=== PATIENT | female | born 1965 | race Caucasian/White ===

== ENCOUNTER 2022-04-21 16:22 | Inpatient (IN) | payer OTHER ==
[~2022-04-21] VITALS: Ht 160 cm; Wt 65.9 kg
[2022-04-21] MEDS ORDERED: fentaNYL 100 MCG/2 ML INJECTION IV ONE ×3 (16:45→19:05)
[2022-04-21] MEDS: fentaNYL 100 MCG/2 ML INJECTION IV PRN ×2 (17:44→18:31)
[2022-04-21 19:44] LABS: RSV AMPLIFICATION NEGATIVE (NEGATIVE)
[2022-04-21 19:48] LABS: BASO % 0.3 % (0.0-1.0); EOS % 0.4 % (0.0-3.0); HEMATOCRIT 35.5 % (36.0-47.0); HEMOGLOBIN 11.1 g/dl (12.0-15.5); LYMPH # 0.7 10^3/uL (1.5-5.0); LYMPH % 7.3 % (24.0-44.0); MEAN CORPUSCULAR HEMOGLOBIN 27.3 pg (27.0-33.0); MEAN CORPUSCULAR HGB CONC 31.3 g/dl (32.0-36.5); MEAN CORPUSCULAR VOLUME 87.2 fl (80.0-96.0); MONO # 0.4 10^3/uL (0.0-0.8); MONO % 4.4 % (2.0-8.0); NEUTROPHILS # 8.4 10^3/uL (1.5-8.5); NEUTROPHILS % 87.1 % (36.0-66.0); PLATELET COUNT, AUTOMATED 225 10^3/uL (150-450); RED BLOOD COUNT 4.07 10^6/uL (4.00-5.40); WHITE BLOOD COUNT 9.7 10^3/uL (4.0-10.0)
[2022-04-21 20:08] LABS: INR 0.97; PARTIAL THROMBOPLASTIN TIME 28.2 SECONDS (25.9-37.0); PROTHROMBIN TIME 13.3 SECONDS (12.7-14.5)
[2022-04-21] MEDS ORDERED: AMLO10TA PO (20:28)
[2022-04-21] MEDS ORDERED: LEXA1TAB PO ×2 (20:28→22:39)
[2022-04-21] MEDS ORDERED: BENA20TA PO (20:28)
[2022-04-21] MEDS ORDERED: ROSU10TA6 PO ×2 (20:28→22:39)
[2022-04-21 20:29] LABS: ALBUMIN 3.7 GM/DL (3.2-5.2); ALT/SGPT 30 U/L (12-78); BILIRUBIN,TOTAL 0.3 MG/DL (0.2-1.0); BLOOD UREA NITROGEN 19 MG/DL (7-18); CALCIUM LEVEL 9.2 MG/DL (8.5-10.1); CARBON DIOXIDE LEVEL 25 MEQ/L (21-32); CHLORIDE LEVEL 104 MEQ/L (98-107); CREATININE FOR GFR 0.76 MG/DL (0.55-1.30); GLOMERULAR FILTRATION RATE > 60.0 (>51); GLUCOSE, FASTING 128 MG/DL (70-100); POTASSIUM SERUM 4.2 MEQ/L (3.5-5.1); SODIUM LEVEL 136 MEQ/L (136-145); TOTAL PROTEIN 7.4 GM/DL (6.4-8.2)
[2022-04-21] MEDS ORDERED: ACETAMINOPHEN TAB 650MG DOSE (2X325MG) PO PRN (21:05)
[2022-04-21] MEDS ORDERED: ANEXSIA, NORCO 7.5MG/325MG TABLET(HYDROCODONE/APAP) PO PRN (21:05)
[2022-04-21] MEDS: ANEXSIA, NORCO 7.5MG/325MG TABLET(HYDROCODONE/APAP) PO PRN ×2 (21:46→22:30)
[2022-04-21] MEDS: MORPHINE 4 MG/ML 1ML VIAL/SYRINGE IV PRN (21:48)
[2022-04-21] MEDS ORDERED: OXYB5TAB10 PO (22:39)
[2022-04-21] MEDS ORDERED: RA G1TAB11 PO (22:39)
[2022-04-21] MEDS ORDERED: LOMO2.5T PO (22:39)
[2022-04-21] MEDS ORDERED: VITA500T73 PO (22:39)
[2022-04-21] MEDS ORDERED: VITMTA PO (22:39)
[2022-04-21] MEDS ORDERED: AMLO1TAB24 PO (22:39)
[2022-04-21] MEDS ORDERED: BENA40TA84 PO (22:39)
[2022-04-21] MEDS ORDERED: VITA100093 PO (22:39)
[2022-04-21] MEDS ORDERED: HOME MED LIST COMPLETE! XX SCH (22:40)
[2022-04-21] MEDS ORDERED: LOMOTIL 2.5MG/0.025MG TABLET PO PRN (22:50)
[2022-04-22] MEDS: amLODIPine 5 MG TAB PO SCH ×2 (00:01→21:47)
[2022-04-22] MEDS ORDERED: KETOROLAC 30 MG/ML 1ML VIAL IV ONE (00:15)
[2022-04-22] MEDS ORDERED: METHOCARBAMOL 1,000 MG/10 ML VIAL (J2800) IV ONE (00:40)
[2022-04-22] MEDS ORDERED: METHOCARBAMOL 1,000 MG/10 ML VIAL (J2800) IM ONE (01:05)
[2022-04-22] MEDS: BENAZEPRIL 20 MG TAB PO SCH ×2 (01:32→21:47)
[2022-04-22] MEDS: ESCITALOPRAM OXALATE 10 MG TAB (LEXAPRO) PO SCH ×2 (01:32→21:45)
[2022-04-22 01:55] VITALS: BP 160/74
[2022-04-22] MEDS: ROSUVASTATIN 10 MG TAB (CRESTOR) PO SCH ×2 (02:07→21:47)
[2022-04-22] MEDS: oxyBUTYnin 5 MG TAB PO SCH ×2 (02:07→21:45)
[2022-04-22] MEDS: ANEXSIA, NORCO 7.5MG/325MG TABLET(HYDROCODONE/APAP) PO PRN ×4 (02:47→21:15)
[2022-04-22 06:48] LABS: HEMATOCRIT 30.1 % (36.0-47.0); HEMOGLOBIN 9.8 g/dl (12.0-15.5); MEAN CORPUSCULAR HEMOGLOBIN 27.5 pg (27.0-33.0); MEAN CORPUSCULAR HGB CONC 32.6 g/dl (32.0-36.5); MEAN CORPUSCULAR VOLUME 84.6 fl (80.0-96.0); PLATELET COUNT, AUTOMATED 207 10^3/uL (150-450); RED BLOOD COUNT 3.56 10^6/uL (4.00-5.40); WHITE BLOOD COUNT 5.8 10^3/uL (4.0-10.0)
[2022-04-22 07:00] VITALS: BP 110/57
[2022-04-22 07:19] LABS: BLOOD UREA NITROGEN 15 MG/DL (7-18); CALCIUM LEVEL 8.7 MG/DL (8.5-10.1); CARBON DIOXIDE LEVEL 27 MEQ/L (21-32); CHLORIDE LEVEL 103 MEQ/L (98-107); CREATININE FOR GFR 0.65 MG/DL (0.55-1.30); GLOMERULAR FILTRATION RATE > 60.0 (>51); GLUCOSE, FASTING 120 MG/DL (70-100); POTASSIUM SERUM 4.3 MEQ/L (3.5-5.1); SODIUM LEVEL 135 MEQ/L (136-145)
[2022-04-22] MEDS: DOCUSATE SODIUM 100MG CAPSULE PO SCH ×2 (08:16→21:00)
[2022-04-22] MEDS ORDERED: ACETAMINOPHEN TAB 650MG DOSE (2X325MG) PO SCH ×2 (13:00→18:00)
[2022-04-22] MEDS: LIDOCAINE 5% (LIDODERM) PATCH TD SCH (13:16)
[2022-04-22 14:00] VITALS: BP 132/73
[2022-04-22] MEDS: ONDANSETRON 4MG ORAL DISINTEGRATING TAB PO PRN ×2 (14:32→21:14)
[2022-04-22] MEDS: MORPHINE 4 MG/ML 1ML VIAL/SYRINGE IV PRN (16:58)
[2022-04-22] MEDS ORDERED: PROCHLORPERAZINE 5MG TAB PO PRN (17:45)
[2022-04-22 19:58] VITALS: BP 133/77
[2022-04-22] MEDS: HEPARIN SOD (PORCINE) 5000UNITS/ML 1ML VIAL/SYRINGE SQ SCH (21:45)
[2022-04-22] MEDS: **NOTE PATIENT COMMENT** MISC XX SCH (21:52)
[2022-04-23] MEDS: ANEXSIA, NORCO 7.5MG/325MG TABLET(HYDROCODONE/APAP) PO PRN ×4 (03:30→21:12)
[2022-04-23] MEDS: HEPARIN SOD (PORCINE) 5000UNITS/ML 1ML VIAL/SYRINGE SQ SCH ×3 (05:37→22:09)
[2022-04-23] MEDS: ONDANSETRON 4MG ORAL DISINTEGRATING TAB PO PRN ×2 (06:23→18:05)
[2022-04-23] MEDS: MORPHINE 4 MG/ML 1ML VIAL/SYRINGE IV PRN ×2 (06:23→18:06)
[2022-04-23 06:54] VITALS: BP 119/69
[2022-04-23] MEDS: DOCUSATE SODIUM 100MG CAPSULE PO SCH ×2 (08:34→21:12)
[2022-04-23] MEDS: LIDOCAINE 5% (LIDODERM) PATCH TD SCH (08:36)
[2022-04-23 14:16] VITALS: BP 119/66
[2022-04-23] MEDS: BENAZEPRIL 20 MG TAB PO SCH (21:11)
[2022-04-23] MEDS: amLODIPine 5 MG TAB PO SCH (21:12)
[2022-04-23] MEDS: ESCITALOPRAM OXALATE 10 MG TAB (LEXAPRO) PO SCH (21:12)
[2022-04-23] MEDS: ROSUVASTATIN 10 MG TAB (CRESTOR) PO SCH (21:12)
[2022-04-23] MEDS: oxyBUTYnin 5 MG TAB PO SCH (21:12)
[2022-04-23] MEDS: **NOTE PATIENT COMMENT** MISC XX SCH (21:14)
[2022-04-23 22:00] VITALS: BP 133/66
[2022-04-24] MEDS: ANEXSIA, NORCO 7.5MG/325MG TABLET(HYDROCODONE/APAP) PO PRN ×5 (01:28→22:24)
[2022-04-24] MEDS: HEPARIN SOD (PORCINE) 5000UNITS/ML 1ML VIAL/SYRINGE SQ SCH ×3 (05:37→21:51)
[2022-04-24 06:00] VITALS: BP 130/67
[2022-04-24 07:40] LABS: HEMATOCRIT 30.9 % (36.0-47.0); HEMOGLOBIN 9.9 g/dl (12.0-15.5); MEAN CORPUSCULAR HEMOGLOBIN 27.5 pg (27.0-33.0); MEAN CORPUSCULAR VOLUME 85.8 fl (80.0-96.0); PLATELET COUNT, AUTOMATED 197 10^3/uL (150-450); WHITE BLOOD COUNT 4.1 10^3/uL (4.0-10.0)
[2022-04-24] MEDS: DOCUSATE SODIUM 100MG CAPSULE PO SCH ×2 (08:07→21:53)
[2022-04-24] MEDS: LIDOCAINE 5% (LIDODERM) PATCH TD SCH (08:09)
[2022-04-24] MEDS ORDERED: SENNA 8.6 MG TAB (SENOKOT) PO PRN (08:50)
[2022-04-24] MEDS: CYCLOBENZAPRINE 10MG TABLET PO SCH ×2 (11:48→21:53)
[2022-04-24] MEDS: MORPHINE 4 MG/ML 1ML VIAL/SYRINGE IV PRN (13:09)
[2022-04-24] MEDS: MIRALAX *UNIT DOSE* 17GM PACKET PO SCH ×2 (13:09→21:00)
[2022-04-24] MEDS: ONDANSETRON 4MG ORAL DISINTEGRATING TAB PO PRN (13:09)
[2022-04-24 14:00] VITALS: BP 127/74
[2022-04-24 20:00] VITALS: BP 143/74
[2022-04-24] MEDS: BENAZEPRIL 20 MG TAB PO SCH (21:52)
[2022-04-24] MEDS: amLODIPine 5 MG TAB PO SCH (21:53)
[2022-04-24] MEDS: ROSUVASTATIN 10 MG TAB (CRESTOR) PO SCH (21:53)
[2022-04-24] MEDS: IBUPROFEN 600MG TAB PO PRN (21:53)
[2022-04-24] MEDS: ESCITALOPRAM OXALATE 10 MG TAB (LEXAPRO) PO SCH (21:54)
[2022-04-24] MEDS: oxyBUTYnin 5 MG TAB PO SCH (21:54)
[2022-04-24] MEDS: **NOTE PATIENT COMMENT** MISC XX SCH (21:55)
[2022-04-25] MEDS: ANEXSIA, NORCO 7.5MG/325MG TABLET(HYDROCODONE/APAP) PO PRN ×2 (02:55→08:02)
[2022-04-25] MEDS: HEPARIN SOD (PORCINE) 5000UNITS/ML 1ML VIAL/SYRINGE SQ SCH ×3 (05:31→20:41)
[2022-04-25 06:00] VITALS: BP 102/51
[2022-04-25 06:17] LABS: HEMATOCRIT 32.8 % (36.0-47.0); HEMOGLOBIN 10.2 g/dl (12.0-15.5); MEAN CORPUSCULAR HEMOGLOBIN 26.8 pg (27.0-33.0); MEAN CORPUSCULAR HGB CONC 31.1 g/dl (32.0-36.5); MEAN CORPUSCULAR VOLUME 86.3 fl (80.0-96.0); PLATELET COUNT, AUTOMATED 206 10^3/uL (150-450); WHITE BLOOD COUNT 4.2 10^3/uL (4.0-10.0)
[2022-04-25] MEDS: DOCUSATE SODIUM 100MG CAPSULE PO SCH ×2 (08:00→20:38)
[2022-04-25] MEDS: SENNA 8.6 MG TAB (SENOKOT) PO SCH (08:00)
[2022-04-25] MEDS: MIRALAX *UNIT DOSE* 17GM PACKET PO SCH ×2 (08:00→20:38)
[2022-04-25] MEDS: CYCLOBENZAPRINE 10MG TABLET PO SCH ×3 (08:00→20:38)
[2022-04-25] MEDS: LIDOCAINE 5% (LIDODERM) PATCH TD SCH (08:02)
[2022-04-25 08:04] LABS: BLOOD UREA NITROGEN 14 MG/DL (7-18); CALCIUM LEVEL 9.3 MG/DL (8.5-10.1); CARBON DIOXIDE LEVEL 28 MEQ/L (21-32); CHLORIDE LEVEL 103 MEQ/L (98-107); CREATININE FOR GFR 0.78 MG/DL (0.55-1.30); GLOMERULAR FILTRATION RATE > 60.0 (>51); GLUCOSE, FASTING 107 MG/DL (70-100); POTASSIUM SERUM 4.4 MEQ/L (3.5-5.1); SODIUM LEVEL 135 MEQ/L (136-145)
[2022-04-25] MEDS ORDERED: SENNA 8.6 MG TAB (SENOKOT) PO SCH (08:50)
[2022-04-25] MEDS: BACLOFEN 5MG PER 1/2 TABLET PO SCH ×3 (09:00→20:38)
[2022-04-25] MEDS ORDERED: NALOXONE 2MG/2ML SYRINGE (J2310 PER 1MG) PRN (09:35)
[2022-04-25] MEDS: METAMUCIL (PSYLLIUM) PACKET PO SCH ×2 (10:19→20:38)
[2022-04-25] MEDS ORDERED: NALOXONE INJ 0.4MG/1ML VIAL (J2310 PER 1MG) IV PRN (10:20)
[2022-04-25] MEDS: MOM 30ML SUSPENSION UDC PO PRN (12:39)
[2022-04-25] MEDS: ACETAMINOPHEN 500 MG TAB PO SCH ×2 (12:39→17:03)
[2022-04-25] MEDS: METHYLNALTREXONE BROMIDE 12MG/0.6ML VIAL (RELISTOR) SC SCH (12:39)
[2022-04-25] MEDS: oxyCODONE 5MG TAB PO PRN ×2 (12:52→17:04)
[2022-04-25 14:00] VITALS: BP 117/67
[2022-04-25] MEDS: oxyBUTYnin 5 MG TAB PO SCH (20:39)
[2022-04-25] MEDS: amLODIPine 5 MG TAB PO SCH (20:39)
[2022-04-25] MEDS: ROSUVASTATIN 10 MG TAB (CRESTOR) PO SCH (20:39)
[2022-04-25] MEDS: ESCITALOPRAM OXALATE 10 MG TAB (LEXAPRO) PO SCH (20:39)
[2022-04-25] MEDS: BENAZEPRIL 20 MG TAB PO SCH (20:39)
[2022-04-25] MEDS: IBUPROFEN 600MG TAB PO PRN (20:40)
[2022-04-25] MEDS: oxyCODONE 10 MG CR TAB PO SCH (20:40)
[2022-04-25] MEDS: **NOTE PATIENT COMMENT** MISC XX SCH (20:40)
[2022-04-25 21:00] VITALS: O2SAT 95
[2022-04-25 22:00] VITALS: BP 120/66
[2022-04-26] VITALS (8 sets, daily range): BP systolic 116–132; BP diastolic 67–75; O2SAT 94
[2022-04-26] MEDS: HEPARIN SOD (PORCINE) 5000UNITS/ML 1ML VIAL/SYRINGE SQ SCH (00:18)
[2022-04-26] MEDS: ACETAMINOPHEN 500 MG TAB PO SCH ×5 (00:22→23:52)
[2022-04-26] MEDS: oxyCODONE 5MG TAB PO PRN ×4 (00:28→23:51)
[2022-04-26] MEDS ORDERED: propofoL 200 MG/20 ML VIAL As Ordered ONE (07:47)
[2022-04-26] MEDS ORDERED: LIDOCAINE 2% 100MG/5ML SDV (FOR ANES.) As Ordered ONE (07:47)
[2022-04-26] MEDS ORDERED: MIDAZOLAM INJ 2MG/2ML VIAL (J2250 PER 1MG) As Ordered ONE (07:47)
[2022-04-26] MEDS ORDERED: fentaNYL 100 MCG/2 ML INJECTION As Ordered ONE ×2 (07:47→09:04)
[2022-04-26] MEDS ORDERED: ROCURONIUM BROMIDE 50 MG/5 ML VIAL As Ordered ONE ×2 (07:47→09:37)
[2022-04-26] MEDS ORDERED: ONDANSETRON 4MG 2ML VIAL As Ordered ONE (07:48)
[2022-04-26] MEDS ORDERED: dexameTHASONE 4 MG/ML 1ML VIAL (J1100 PER 1MG) As Ordered ONE (07:48)
[2022-04-26] MEDS ORDERED: ACETAMINOPHEN 1000MG 100ML IV BTL (OFIRMEV) (J0131 PER 10MG) As Ordered ONE (07:48)
[2022-04-26] MEDS ORDERED: SUGAMMADEX SODIUM 500 MG/5 ML VIAL (BRIDION) As Ordered ONE (07:48)
[2022-04-26] MEDS ORDERED: ceFAZolin 2 GM/D5W 50 ML IV BAG (J0690 PER 500MG) As Ordered ONE ×2 (07:52→12:32)
[2022-04-26] MEDS ORDERED: TRANEXAMIC ACID 100 MG/ML 10ML VIAL As Ordered ONE ×3 (07:52→12:40)
[2022-04-26] MEDS ORDERED: BUPIVACAINE HCL 0.25% 10ML VIAL As Ordered ONE (07:53)
[2022-04-26] MEDS ORDERED: BUPIVACAINE LIPOSOME/PF 1.3% 20ML VIAL (13.3MG/ML)(EXPAREL) As Ordered ONE (07:53)
[2022-04-26] MEDS ORDERED: VANCOMYCIN 1000MG/20ML VIAL As Ordered ONE ×2 (07:53→08:54)
[2022-04-26] MEDS: DOCUSATE SODIUM 100MG CAPSULE PO SCH ×2 (08:00→20:06)
[2022-04-26] MEDS: METHYLNALTREXONE BROMIDE 12MG/0.6ML VIAL (RELISTOR) SC SCH (08:01)
[2022-04-26] MEDS: METAMUCIL (PSYLLIUM) PACKET PO SCH ×2 (08:01→20:07)
[2022-04-26] MEDS: oxyCODONE 10 MG CR TAB PO SCH (08:01)
[2022-04-26] MEDS: LIDOCAINE 5% (LIDODERM) PATCH TD SCH (08:01)
[2022-04-26] MEDS: SENNA 8.6 MG TAB (SENOKOT) PO SCH (08:01)
[2022-04-26] MEDS: MIRALAX *UNIT DOSE* 17GM PACKET PO SCH ×2 (08:01→20:07)
[2022-04-26] MEDS: BACLOFEN 5MG PER 1/2 TABLET PO SCH ×3 (08:01→20:06)
[2022-04-26] MEDS: CYCLOBENZAPRINE 10MG TABLET PO SCH ×3 (08:01→20:06)
[2022-04-26] MEDS ORDERED: PHENYLephrine 500MCG 5ML (100MCG/ML) SYRINGE As Ordered ONE ×2 (10:36→10:45)
[2022-04-26] MEDS ORDERED: PHENYLEPHRINE 10MG/ML 1ML VIAL (J2370 PER 1) As Ordered ONE (11:10)
[2022-04-26] MEDS ORDERED: HYDROmorphone HCL 2MG/ML 1ML VIAL As Ordered ONE (12:40)
[2022-04-26] MEDS ORDERED: ONDANSETRON 4MG 2ML VIAL IV PRN (13:10)
[2022-04-26] MEDS ORDERED: oxyCODONE 5MG TAB PO PRN (13:10)
[2022-04-26] MEDS ORDERED: fentaNYL 100 MCG/2 ML INJECTION IV PRN (13:10)
[2022-04-26] MEDS ORDERED: LR 1,000 ML IV SCH (13:10)
[2022-04-26] MEDS: MORPHINE 2 MG/ML 1ML VIAL IV PRN ×2 (14:09→14:31)
[2022-04-26] MEDS ORDERED: ERYTHROMYCIN OPHTH OINT OU SCH (16:00)
[2022-04-26] MEDS ORDERED: MORPHINE 4 MG/ML 1ML VIAL/SYRINGE IV PRN (16:25)
[2022-04-26] MEDS: LACRILUBE (AKWA TEARS) OPHTH OINT 3.5 GM OU SCH ×2 (17:03→20:08)
[2022-04-26] MEDS: ERYTHROMYCIN OPHTH OINT OU SCH ×2 (17:04→20:08)
[2022-04-26] MEDS ORDERED: hydrOXYzine 50 MG TAB PO ONE (19:30)
[2022-04-26] MEDS: oxyBUTYnin 5 MG TAB PO SCH (20:06)
[2022-04-26] MEDS: amLODIPine 5 MG TAB PO SCH (20:06)
[2022-04-26] MEDS: ROSUVASTATIN 10 MG TAB (CRESTOR) PO SCH (20:06)
[2022-04-26] MEDS: **NOTE PATIENT COMMENT** MISC XX SCH (20:07)
[2022-04-27 02:58] VITALS: BP 136/74
[2022-04-27] MEDS: oxyCODONE 5MG TAB PO PRN ×3 (03:57→22:35)
[2022-04-27] MEDS: ACETAMINOPHEN 500 MG TAB PO SCH ×4 (06:03→23:28)
[2022-04-27 06:37] LABS: HEMATOCRIT 25.7 % (36.0-47.0); HEMOGLOBIN 8.1 g/dl (12.0-15.5)
[2022-04-27 07:09] LABS: BLOOD UREA NITROGEN 16 MG/DL (7-18); CALCIUM LEVEL 8.8 MG/DL (8.5-10.1); CARBON DIOXIDE LEVEL 27 MEQ/L (21-32); CHLORIDE LEVEL 103 MEQ/L (98-107); CREATININE FOR GFR 0.74 MG/DL (0.55-1.30); GLOMERULAR FILTRATION RATE > 60.0 (>51); GLUCOSE, FASTING 131 MG/DL (70-100); POTASSIUM SERUM 4.3 MEQ/L (3.5-5.1); SODIUM LEVEL 136 MEQ/L (136-145)
[2022-04-27] MEDS ORDERED: NEOSPORIN TOP OINT 15GM TOP SCH (09:00)
[2022-04-27] MEDS: METAMUCIL (PSYLLIUM) PACKET PO SCH ×2 (09:40→22:04)
[2022-04-27] MEDS: SENNA 8.6 MG TAB (SENOKOT) PO SCH (09:40)
[2022-04-27] MEDS: BACLOFEN 5MG PER 1/2 TABLET PO SCH ×3 (09:40→22:03)
[2022-04-27] MEDS: MIRALAX *UNIT DOSE* 17GM PACKET PO SCH ×2 (09:40→22:04)
[2022-04-27] MEDS: CYCLOBENZAPRINE 10MG TABLET PO SCH ×3 (09:40→22:03)
[2022-04-27] MEDS: DOCUSATE SODIUM 100MG CAPSULE PO SCH ×2 (09:40→22:02)
[2022-04-27] MEDS: LIDOCAINE 5% (LIDODERM) PATCH TD SCH (09:40)
[2022-04-27] MEDS: ERYTHROMYCIN OPHTH OINT OU SCH ×5 (09:41→22:04)
[2022-04-27] MEDS: LACRILUBE (AKWA TEARS) OPHTH OINT 3.5 GM OU SCH ×4 (09:41→22:04)
[2022-04-27] MEDS: METHYLNALTREXONE BROMIDE 12MG/0.6ML VIAL (RELISTOR) SC SCH (11:32)
[2022-04-27] MEDS ORDERED: BISACODYL 10 MG SUPP PR ONE (12:40)
[2022-04-27] MEDS: HEPARIN SOD (PORCINE) 5000UNITS/ML 1ML VIAL/SYRINGE SQ SCH ×2 (13:13→22:05)
[2022-04-27 13:20] LABS: HEMATOCRIT 24.9 % (36.0-47.0); HEMOGLOBIN 7.9 g/dl (12.0-15.5)
[2022-04-27 14:00] VITALS: BP 123/70
[2022-04-27 14:02] LABS: FERRITIN 42 NG/ML (8-252); IRON (FE) 27 UG/DL (50-170); PERCENT SATURATION 9.2 % (13.2-45.0); TOTAL IRON BINDING CAPACITY 292 UG/DL (250-450)
[2022-04-27 14:34] LABS: VITAMIN B12 LEVEL > 2000 PG/ML (247-911)
[2022-04-27 14:35] LABS: FOLATE 10.8 NG/ML (>5.4)
[2022-04-27] MEDS ORDERED: ISOVUE-370 76% 100ML VIAL As Ordered ONE (17:26)
[2022-04-27] MEDS ORDERED: IRON SUCROSE 300 MG in NS 250 ML IV ONE (19:00)
[2022-04-27 19:28] VITALS: BP 135/82
[2022-04-27] MEDS: **NOTE PATIENT COMMENT** MISC XX SCH (21:00)
[2022-04-27 22:00] VITALS: BP 132/76
[2022-04-27] MEDS: oxyBUTYnin 5 MG TAB PO SCH (22:04)
[2022-04-27] MEDS: ROSUVASTATIN 10 MG TAB (CRESTOR) PO SCH (22:05)
[2022-04-27] MEDS: ESCITALOPRAM OXALATE 10 MG TAB (LEXAPRO) PO SCH (22:05)
[2022-04-27] MEDS ORDERED: BISACODYL 5 MG TAB PO ONE (22:05)
[2022-04-27] MEDS: amLODIPine 5 MG TAB PO SCH (22:06)
[2022-04-27] MEDS: BENAZEPRIL 20 MG TAB PO SCH (22:35)
[2022-04-28] VITALS (8 sets, daily range): BP systolic 120–142; BP diastolic 67–79
[2022-04-28] MEDS: HEPARIN SOD (PORCINE) 5000UNITS/ML 1ML VIAL/SYRINGE SQ SCH ×3 (05:43→20:37)
[2022-04-28] MEDS: ACETAMINOPHEN 500 MG TAB PO SCH ×3 (05:43→16:53)
[2022-04-28] MEDS: oxyCODONE 5MG TAB PO PRN (05:56)
[2022-04-28 06:18] LABS: HEMATOCRIT 24.6 % (36.0-47.0); HEMOGLOBIN 7.7 g/dl (12.0-15.5); MEAN CORPUSCULAR HEMOGLOBIN 27.1 pg (27.0-33.0); MEAN CORPUSCULAR HGB CONC 31.3 g/dl (32.0-36.5); MEAN CORPUSCULAR VOLUME 86.6 fl (80.0-96.0); PLATELET COUNT, AUTOMATED 233 10^3/uL (150-450); RED BLOOD COUNT 2.84 10^6/uL (4.00-5.40); WHITE BLOOD COUNT 7.4 10^3/uL (4.0-10.0)
[2022-04-28 06:35] LABS: BLOOD UREA NITROGEN 12 MG/DL (7-18); CALCIUM LEVEL 9.1 MG/DL (8.5-10.1); CARBON DIOXIDE LEVEL 30 MEQ/L (21-32); CHLORIDE LEVEL 101 MEQ/L (98-107); CREATININE FOR GFR 0.57 MG/DL (0.55-1.30); GLOMERULAR FILTRATION RATE > 60.0 (>51); GLUCOSE, FASTING 117 MG/DL (70-100); MAGNESIUM LEVEL 2.2 MG/DL (1.8-2.4); POTASSIUM SERUM 4.4 MEQ/L (3.5-5.1); SODIUM LEVEL 133 MEQ/L (136-145)
[2022-04-28] MEDS ORDERED: MOM 30ML SUSPENSION UDC PO ONE (07:00)
[2022-04-28] MEDS: LACTULOSE 20 GM/30 ML SYRUP UD PO SCH ×2 (08:02→20:37)
[2022-04-28] MEDS: MIRALAX *UNIT DOSE* 17GM PACKET PO SCH ×2 (08:03→20:37)
[2022-04-28] MEDS: METAMUCIL (PSYLLIUM) PACKET PO SCH ×2 (08:03→20:37)
[2022-04-28] MEDS: DOCUSATE SODIUM 100MG CAPSULE PO SCH ×2 (08:03→20:39)
[2022-04-28] MEDS: BACLOFEN 5MG PER 1/2 TABLET PO SCH ×3 (08:04→20:38)
[2022-04-28] MEDS: SENNA 8.6 MG TAB (SENOKOT) PO SCH (08:04)
[2022-04-28] MEDS: CYCLOBENZAPRINE 10MG TABLET PO SCH ×3 (08:04→20:38)
[2022-04-28] MEDS: FERROUS SULFATE 325MG TAB PO SCH (08:04)
[2022-04-28] MEDS: METHYLNALTREXONE BROMIDE 12MG/0.6ML VIAL (RELISTOR) SC SCH (08:04)
[2022-04-28] MEDS: LIDOCAINE 5% (LIDODERM) PATCH TD SCH (08:12)
[2022-04-28] MEDS: LACRILUBE (AKWA TEARS) OPHTH OINT 3.5 GM OU SCH ×3 (08:12→20:39)
[2022-04-28] MEDS: ERYTHROMYCIN OPHTH OINT OU SCH ×4 (08:12→20:39)
[2022-04-28] MEDS ORDERED: LIDOCAINE 1% MDV 20ML VIAL As Ordered ONE (10:47)
[2022-04-28] MEDS ORDERED: ISOVUE-370 76% 100ML VIAL As Ordered ONE (11:26)
[2022-04-28] MEDS: CALCIUM CARBONATE 500 MG CHEW U/D PO PRN (20:37)
[2022-04-28] MEDS: ROSUVASTATIN 10 MG TAB (CRESTOR) PO SCH (20:38)
[2022-04-28] MEDS: oxyBUTYnin 5 MG TAB PO SCH (20:38)
[2022-04-28] MEDS: ESCITALOPRAM OXALATE 10 MG TAB (LEXAPRO) PO SCH (20:38)
[2022-04-28] MEDS: BENAZEPRIL 20 MG TAB PO SCH (20:38)
[2022-04-28] MEDS: **NOTE PATIENT COMMENT** MISC XX SCH (20:39)
[2022-04-28] MEDS: amLODIPine 5 MG TAB PO SCH (20:39)
[2022-04-29] MEDS: ONDANSETRON 4MG ORAL DISINTEGRATING TAB PO PRN ×2 (00:05→08:38)
[2022-04-29 05:47] VITALS: BP 169/91
[2022-04-29] MEDS: ACETAMINOPHEN 500 MG TAB PO SCH ×4 (05:50→18:02)
[2022-04-29] MEDS: HEPARIN SOD (PORCINE) 5000UNITS/ML 1ML VIAL/SYRINGE SQ SCH ×3 (05:50→21:53)
[2022-04-29 06:20] LABS: HEMATOCRIT 28.3 % (36.0-47.0); MEAN CORPUSCULAR HEMOGLOBIN 27.4 pg (27.0-33.0); MEAN CORPUSCULAR HGB CONC 31.8 g/dl (32.0-36.5); PLATELET COUNT, AUTOMATED 239 10^3/uL (150-450); RED BLOOD COUNT 3.29 10^6/uL (4.00-5.40); WHITE BLOOD COUNT 7.9 10^3/uL (4.0-10.0)
[2022-04-29 07:22] LABS: BLOOD UREA NITROGEN 13 MG/DL (7-18); CARBON DIOXIDE LEVEL 27 MEQ/L (21-32); CHLORIDE LEVEL 101 MEQ/L (98-107); CREATININE FOR GFR 0.45 MG/DL (0.55-1.30); GLOMERULAR FILTRATION RATE > 60.0 (>51); GLUCOSE, FASTING 130 MG/DL (70-100); MAGNESIUM LEVEL 2.2 MG/DL (1.8-2.4); PHOSPHORUS LEVEL 3.5 MG/DL (2.5-4.9); SODIUM LEVEL 133 MEQ/L (136-145)
[2022-04-29] MEDS: LIDOCAINE 5% (LIDODERM) PATCH TD SCH (09:00)
[2022-04-29] MEDS: LACRILUBE (AKWA TEARS) OPHTH OINT 3.5 GM OU SCH ×3 (09:00→21:00)
[2022-04-29] MEDS ORDERED: MIRALAX *UNIT DOSE* 17GM PACKET PO SCH (09:00)
[2022-04-29] MEDS: ERYTHROMYCIN OPHTH OINT OU SCH ×4 (09:00→21:00)
[2022-04-29] MEDS: METHYLNALTREXONE BROMIDE 12MG/0.6ML VIAL (RELISTOR) SC SCH (09:43)
[2022-04-29] MEDS: METAMUCIL (PSYLLIUM) PACKET PO SCH ×2 (09:43→21:52)
[2022-04-29] MEDS: DOCUSATE SODIUM 100MG CAPSULE PO SCH ×2 (09:43→21:54)
[2022-04-29] MEDS: MIRALAX *UNIT DOSE* 17GM PACKET PO SCH ×2 (09:43→21:52)
[2022-04-29] MEDS: FERROUS SULFATE 325MG TAB PO SCH (09:44)
[2022-04-29] MEDS: BACLOFEN 5MG PER 1/2 TABLET PO SCH ×3 (09:44→21:53)
[2022-04-29] MEDS: LACTULOSE 20 GM/30 ML SYRUP UD PO SCH ×2 (09:44→21:52)
[2022-04-29] MEDS: SENNA 8.6 MG TAB (SENOKOT) PO SCH (09:44)
[2022-04-29] MEDS: CYCLOBENZAPRINE 10MG TABLET PO SCH ×3 (09:44→21:54)
[2022-04-29] MEDS: CALCIUM CARBONATE 500 MG CHEW U/D PO PRN (13:10)
[2022-04-29 14:49] VITALS: BP 168/92
[2022-04-29] MEDS ORDERED: LACTULOSE 20 GM/30 ML SYRUP UD PO SCH (16:00)
[2022-04-29] MEDS: **NOTE PATIENT COMMENT** MISC XX SCH (21:00)
[2022-04-29] MEDS: oxyBUTYnin 5 MG TAB PO SCH (21:54)
[2022-04-29] MEDS: BENAZEPRIL 20 MG TAB PO SCH (21:54)
[2022-04-29] MEDS: ESCITALOPRAM OXALATE 10 MG TAB (LEXAPRO) PO SCH (21:54)
[2022-04-29] MEDS: ROSUVASTATIN 10 MG TAB (CRESTOR) PO SCH (21:54)
[2022-04-29] MEDS: amLODIPine 5 MG TAB PO SCH (21:55)
[2022-04-29 22:05] VITALS: BP 166/80
[2022-04-30] MEDS: ONDANSETRON 4MG ORAL DISINTEGRATING TAB PO PRN (02:35)
[2022-04-30] MEDS: CALCIUM CARBONATE 500 MG CHEW U/D PO PRN (02:35)
[2022-04-30 05:57] VITALS: BP 174/94
[2022-04-30] MEDS: HEPARIN SOD (PORCINE) 5000UNITS/ML 1ML VIAL/SYRINGE SQ SCH ×3 (06:00→21:57)
[2022-04-30] MEDS: ACETAMINOPHEN 500 MG TAB PO SCH ×4 (06:01→16:13)
[2022-04-30 07:16] LABS: HEMATOCRIT 29.3 % (36.0-47.0); HEMOGLOBIN 9.5 g/dl (12.0-15.5); MEAN CORPUSCULAR HEMOGLOBIN 27.9 pg (27.0-33.0); MEAN CORPUSCULAR HGB CONC 32.4 g/dl (32.0-36.5); MEAN CORPUSCULAR VOLUME 86.2 fl (80.0-96.0); PLATELET COUNT, AUTOMATED 249 10^3/uL (150-450); WHITE BLOOD COUNT 7.8 10^3/uL (4.0-10.0)
[2022-04-30 08:01] LABS: BLOOD UREA NITROGEN 17 MG/DL (7-18); CALCIUM LEVEL 8.8 MG/DL (8.5-10.1); CARBON DIOXIDE LEVEL 26 MEQ/L (21-32); CHLORIDE LEVEL 101 MEQ/L (98-107); CREATININE FOR GFR 0.48 MG/DL (0.55-1.30); GLOMERULAR FILTRATION RATE > 60.0 (>51); GLUCOSE, FASTING 147 MG/DL (70-100); POTASSIUM SERUM 3.6 MEQ/L (3.5-5.1); SODIUM LEVEL 135 MEQ/L (136-145)
[2022-04-30] MEDS: LACTULOSE 20 GM/30 ML SYRUP UD PO SCH ×3 (08:58→21:58)
[2022-04-30] MEDS: MIRALAX *UNIT DOSE* 17GM PACKET PO SCH ×2 (08:58→21:57)
[2022-04-30] MEDS: MOM 30ML SUSPENSION UDC PO PRN (08:58)
[2022-04-30] MEDS: DOCUSATE SODIUM 100MG CAPSULE PO SCH ×2 (08:59→21:59)
[2022-04-30] MEDS: CYCLOBENZAPRINE 10MG TABLET PO SCH ×3 (08:59→21:59)
[2022-04-30] MEDS: BACLOFEN 5MG PER 1/2 TABLET PO SCH ×3 (08:59→21:58)
[2022-04-30] MEDS: LIDOCAINE 5% (LIDODERM) PATCH TD SCH (09:00)
[2022-04-30] MEDS: ERYTHROMYCIN OPHTH OINT OU SCH ×4 (09:00→21:00)
[2022-04-30] MEDS: LACRILUBE (AKWA TEARS) OPHTH OINT 3.5 GM OU SCH ×3 (09:00→21:00)
[2022-04-30] MEDS ORDERED: amLODIPine 5 MG TAB PO SCH (09:00)
[2022-04-30] MEDS: FERROUS SULFATE 325MG TAB PO SCH (09:01)
[2022-04-30] MEDS: oxyCODONE 5MG TAB PO PRN (09:01)
[2022-04-30] MEDS: SENNA 8.6 MG TAB (SENOKOT) PO SCH (09:02)
[2022-04-30] MEDS: METAMUCIL (PSYLLIUM) PACKET PO SCH ×2 (09:02→21:57)
[2022-04-30] MEDS ORDERED: BISACODYL 10 MG SUPP PR ONE (09:45)
[2022-04-30] MEDS: METHYLNALTREXONE BROMIDE 12MG/0.6ML VIAL (RELISTOR) SC SCH (10:53)
[2022-04-30] MEDS: BISACODYL 10 MG SUPP XX SCH ×4 (11:00→21:57)
[2022-04-30 14:00] VITALS: BP 178/93
[2022-04-30] MEDS: atenoloL 25 MG TAB PO SCH (18:05)
[2022-04-30] MEDS: **NOTE PATIENT COMMENT** MISC XX SCH (21:00)
[2022-04-30] MEDS: ESCITALOPRAM OXALATE 10 MG TAB (LEXAPRO) PO SCH (21:58)
[2022-04-30] MEDS: BENAZEPRIL 20 MG TAB PO SCH (21:58)
[2022-04-30] MEDS: oxyBUTYnin 5 MG TAB PO SCH (21:58)
[2022-04-30] MEDS: ROSUVASTATIN 10 MG TAB (CRESTOR) PO SCH (21:58)
[2022-04-30 22:03] VITALS: BP 171/85
[2022-05-01] MEDS: ONDANSETRON 4MG ORAL DISINTEGRATING TAB PO PRN (00:26)
[2022-05-01] MEDS: CALCIUM CARBONATE 500 MG CHEW U/D PO PRN (00:26)
[2022-05-01] MEDS ORDERED: SIMETHICONE 80MG CHEW TAB PO PRN (03:30)
[2022-05-01] MEDS: D5W/0.9% SODIUM CHLORIDE 1,000 ML IV SCH ×2 (03:56→15:02)
[2022-05-01] MEDS ORDERED: MORPHINE 2 MG/ML 1ML VIAL IV PRN ×2 (04:30→11:10)
[2022-05-01] MEDS: HEPARIN SOD (PORCINE) 5000UNITS/ML 1ML VIAL/SYRINGE SQ SCH ×3 (05:30→22:02)
[2022-05-01] MEDS: ACETAMINOPHEN 500 MG TAB PO SCH ×4 (05:30→16:48)
[2022-05-01 05:49] VITALS: BP 171/86
[2022-05-01 06:04] LABS: HEMATOCRIT 27.6 % (36.0-47.0); HEMOGLOBIN 8.8 g/dl (12.0-15.5); MEAN CORPUSCULAR HEMOGLOBIN 27.4 pg (27.0-33.0); MEAN CORPUSCULAR HGB CONC 31.9 g/dl (32.0-36.5); PLATELET COUNT, AUTOMATED 295 10^3/uL (150-450); RED BLOOD COUNT 3.21 10^6/uL (4.00-5.40); WHITE BLOOD COUNT 8.6 10^3/uL (4.0-10.0)
[2022-05-01 06:32] LABS: BLOOD UREA NITROGEN 19 MG/DL (7-18); CALCIUM LEVEL 9.1 MG/DL (8.5-10.1); CARBON DIOXIDE LEVEL 26 MEQ/L (21-32); CHLORIDE LEVEL 99 MEQ/L (98-107); CREATININE FOR GFR 0.52 MG/DL (0.55-1.30); GLOMERULAR FILTRATION RATE > 60.0 (>51); GLUCOSE, FASTING 158 MG/DL (70-100); MAGNESIUM LEVEL 2.1 MG/DL (1.8-2.4); PHOSPHORUS LEVEL 2.8 MG/DL (2.5-4.9); POTASSIUM SERUM 3.5 MEQ/L (3.5-5.1); SODIUM LEVEL 133 MEQ/L (136-145)
[2022-05-01] MEDS: MIRALAX *UNIT DOSE* 17GM PACKET PO SCH ×2 (09:00→19:35)
[2022-05-01] MEDS: ERYTHROMYCIN OPHTH OINT OU SCH ×4 (09:00→19:36)
[2022-05-01] MEDS: FERROUS SULFATE 325MG TAB PO SCH (09:00)
[2022-05-01] MEDS: LIDOCAINE 5% (LIDODERM) PATCH TD SCH (09:00)
[2022-05-01] MEDS: LACTULOSE 20 GM/30 ML SYRUP UD PO SCH ×3 (09:00→20:07)
[2022-05-01] MEDS: BACLOFEN 5MG PER 1/2 TABLET PO SCH (09:00)
[2022-05-01] MEDS: SENNA 8.6 MG TAB (SENOKOT) PO SCH (09:00)
[2022-05-01] MEDS: DOCUSATE SODIUM 100MG CAPSULE PO SCH ×2 (09:00→20:07)
[2022-05-01] MEDS: LACRILUBE (AKWA TEARS) OPHTH OINT 3.5 GM OU SCH ×3 (09:00→19:36)
[2022-05-01] MEDS: BISACODYL 10 MG SUPP XX SCH ×4 (09:00→20:03)
[2022-05-01] MEDS ORDERED: MORPHINE 4 MG/ML 1ML VIAL/SYRINGE IV PRN (09:20)
[2022-05-01] MEDS: MORPHINE 2 MG/ML 1ML VIAL IV PRN ×4 (09:44→20:07)
[2022-05-01] MEDS: FLEET OIL RETENTION ENEMA XX PRN ×3 (10:00→16:00)
[2022-05-01 14:18] VITALS: BP 172/102
[2022-05-01] MEDS: atenoloL 25 MG TAB PO SCH (14:25)
[2022-05-01 15:10] VITALS: BP 154/81
[2022-05-01] MEDS: **NOTE PATIENT COMMENT** MISC XX SCH (19:35)
[2022-05-01 20:03] VITALS: BP 149/93
[2022-05-01] MEDS: oxyBUTYnin 5 MG TAB PO SCH (20:03)
[2022-05-01] MEDS: ROSUVASTATIN 10 MG TAB (CRESTOR) PO SCH (20:03)
[2022-05-01] MEDS: ESCITALOPRAM OXALATE 10 MG TAB (LEXAPRO) PO SCH (20:03)
[2022-05-01] MEDS: BENAZEPRIL 20 MG TAB PO SCH (20:04)
[2022-05-02] MEDS ORDERED: BISACODYL 10 MG SUPP XX SCH
[2022-05-02] MEDS: MORPHINE 2 MG/ML 1ML VIAL IV PRN ×4 (00:23→18:38)
[2022-05-02] MEDS: ACETAMINOPHEN 500 MG TAB PO SCH ×2 (05:33)
[2022-05-02] MEDS: HEPARIN SOD (PORCINE) 5000UNITS/ML 1ML VIAL/SYRINGE SQ SCH ×3 (05:38→21:43)
[2022-05-02] MEDS: D5W/0.9% SODIUM CHLORIDE 1,000 ML IV SCH ×2 (05:38→11:01)
[2022-05-02 05:41] VITALS: BP 138/69
[2022-05-02 06:13] LABS: HEMATOCRIT 26.4 % (36.0-47.0); HEMOGLOBIN 8.5 g/dl (12.0-15.5); MEAN CORPUSCULAR HEMOGLOBIN 28.5 pg (27.0-33.0); MEAN CORPUSCULAR HGB CONC 32.2 g/dl (32.0-36.5); MEAN CORPUSCULAR VOLUME 88.6 fl (80.0-96.0); PLATELET COUNT, AUTOMATED 190 10^3/uL (150-450); RED BLOOD COUNT 2.98 10^6/uL (4.00-5.40)
[2022-05-02 06:37] LABS: BLOOD UREA NITROGEN 12 MG/DL (7-18); CALCIUM LEVEL 8.2 MG/DL (8.5-10.1); CARBON DIOXIDE LEVEL 25 MEQ/L (21-32); CHLORIDE LEVEL 103 MEQ/L (98-107); CREATININE FOR GFR 0.43 MG/DL (0.55-1.30); GLOMERULAR FILTRATION RATE > 60.0 (>51); GLUCOSE, FASTING 122 MG/DL (70-100); PHOSPHORUS LEVEL 2.3 MG/DL (2.5-4.9); POTASSIUM SERUM 3.6 MEQ/L (3.5-5.1); SODIUM LEVEL 135 MEQ/L (136-145)
[2022-05-02] MEDS: LACTULOSE 20 GM/30 ML SYRUP UD PO SCH ×3 (09:00→19:58)
[2022-05-02] MEDS: DOCUSATE SODIUM 100MG CAPSULE PO SCH ×2 (09:00→19:58)
[2022-05-02] MEDS: LIDOCAINE 5% (LIDODERM) PATCH TD SCH (09:00)
[2022-05-02] MEDS: MIRALAX *UNIT DOSE* 17GM PACKET PO SCH ×2 (09:00→19:58)
[2022-05-02] MEDS ORDERED: CYCLOBENZAPRINE 10MG TABLET PO SCH (09:00)
[2022-05-02] MEDS: ERYTHROMYCIN OPHTH OINT OU SCH ×2 (09:00→12:17)
[2022-05-02] MEDS ORDERED: BACLOFEN 5MG PER 1/2 TABLET PO SCH (09:00)
[2022-05-02] MEDS: LACRILUBE (AKWA TEARS) OPHTH OINT 3.5 GM OU SCH ×3 (09:00→19:58)
[2022-05-02] MEDS: BISACODYL 10 MG SUPP XX SCH ×2 (09:20→15:53)
[2022-05-02] MEDS: FLEET OIL RETENTION ENEMA XX PRN ×4 (09:20→15:53)
[2022-05-02] MEDS: FERROUS SULFATE 325MG TAB PO SCH (09:22)
[2022-05-02] MEDS: atenoloL 25 MG TAB PO SCH (09:23)
[2022-05-02 14:00] VITALS: BP 134/72
[2022-05-02] MEDS ORDERED: MAGNESIUM CITRATE 300 ML BTL NG ONE (16:20)
[2022-05-02] MEDS ORDERED: POTASSIUM PHOSPHATE INJ 20 MMOL in D5W 250 ML IV ONE (17:00)
[2022-05-02] MEDS: **NOTE PATIENT COMMENT** MISC XX SCH (19:58)
[2022-05-02] MEDS: oxyBUTYnin 5 MG TAB PO SCH (20:08)
[2022-05-02] MEDS: ROSUVASTATIN 10 MG TAB (CRESTOR) PO SCH (20:08)
[2022-05-02] MEDS: ESCITALOPRAM OXALATE 10 MG TAB (LEXAPRO) PO SCH (20:08)
[2022-05-02] MEDS: BENAZEPRIL 20 MG TAB PO SCH (20:09)
[2022-05-03] MEDS: MORPHINE 2 MG/ML 1ML VIAL IV PRN ×4 (00:20→22:34)
[2022-05-03] MEDS: BISACODYL 10 MG SUPP XX SCH ×4 (05:58→18:00)
[2022-05-03] MEDS: HEPARIN SOD (PORCINE) 5000UNITS/ML 1ML VIAL/SYRINGE SQ SCH ×3 (05:59→21:16)
[2022-05-03 06:00] VITALS: BP 140/74
[2022-05-03] MEDS: CEPACOL LOZENGE PO PRN ×6 (06:23→21:21)
[2022-05-03 07:11] LABS: HEMATOCRIT 25.4 % (36.0-47.0); HEMOGLOBIN 7.9 g/dl (12.0-15.5); MEAN CORPUSCULAR HEMOGLOBIN 26.9 pg (27.0-33.0); MEAN CORPUSCULAR HGB CONC 31.1 g/dl (32.0-36.5); MEAN CORPUSCULAR VOLUME 86.4 fl (80.0-96.0); PLATELET COUNT, AUTOMATED 202 10^3/uL (150-450); RED BLOOD COUNT 2.94 10^6/uL (4.00-5.40); WHITE BLOOD COUNT 7.7 10^3/uL (4.0-10.0)
[2022-05-03 07:56] LABS: BLOOD UREA NITROGEN 6 MG/DL (7-18); CALCIUM LEVEL 8.1 MG/DL (8.5-10.1); CARBON DIOXIDE LEVEL 27 MEQ/L (21-32); CHLORIDE LEVEL 101 MEQ/L (98-107); CREATININE FOR GFR 0.38 MG/DL (0.55-1.30); GLOMERULAR FILTRATION RATE > 60.0 (>51); GLUCOSE, FASTING 114 MG/DL (70-100); PHOSPHORUS LEVEL 2.5 MG/DL (2.5-4.9); POTASSIUM SERUM 3.1 MEQ/L (3.5-5.1); SODIUM LEVEL 133 MEQ/L (136-145)
[2022-05-03] MEDS: LIDOCAINE 5% (LIDODERM) PATCH TD SCH (09:00)
[2022-05-03] MEDS: LACTULOSE 20 GM/30 ML SYRUP UD PO SCH ×3 (09:00→20:42)
[2022-05-03] MEDS: MIRALAX *UNIT DOSE* 17GM PACKET PO SCH ×2 (09:00→20:42)
[2022-05-03] MEDS ORDERED: MAGNESIUM CITRATE 300 ML BTL NG ONE (09:15)
[2022-05-03] MEDS: FERROUS SULFATE 325MG TAB PO SCH (09:41)
[2022-05-03] MEDS: atenoloL 25 MG TAB PO SCH (09:41)
[2022-05-03] MEDS: DOCUSATE SODIUM 100MG CAPSULE PO SCH ×2 (09:41→20:42)
[2022-05-03] MEDS: KCL 10MEQ/100ML SWI (KRUN) 10 MEQ in IV 1 EA IV SCH ×4 (09:42→13:49)
[2022-05-03] MEDS: D5W/0.9% SODIUM CHLORIDE 1,000 ML IV SCH ×2 (09:43→18:00)
[2022-05-03] MEDS: LACRILUBE (AKWA TEARS) OPHTH OINT 3.5 GM OU SCH ×3 (09:43→20:42)
[2022-05-03 14:00] VITALS: BP 143/75
[2022-05-03] MEDS: **NOTE PATIENT COMMENT** MISC XX SCH (20:43)
[2022-05-03] MEDS: ROSUVASTATIN 10 MG TAB (CRESTOR) PO SCH (21:15)
[2022-05-03] MEDS: BENAZEPRIL 20 MG TAB PO SCH (21:15)
[2022-05-03] MEDS: ESCITALOPRAM OXALATE 10 MG TAB (LEXAPRO) PO SCH (21:16)
[2022-05-03] MEDS: oxyBUTYnin 5 MG TAB PO SCH (21:16)
[2022-05-03 23:24] VITALS: BP 156/77
[2022-05-04] MEDS ORDERED: CHLORASEPTIC SPRAY MT PRN (01:15)
[2022-05-04] MEDS: MORPHINE 2 MG/ML 1ML VIAL IV PRN ×2 (04:46→08:59)
[2022-05-04 05:34] LABS: HEMATOCRIT 25.3 % (36.0-47.0); HEMOGLOBIN 8.1 g/dl (12.0-15.5); MEAN CORPUSCULAR HEMOGLOBIN 27.6 pg (27.0-33.0); MEAN CORPUSCULAR VOLUME 86.1 fl (80.0-96.0); PLATELET COUNT, AUTOMATED 208 10^3/uL (150-450); RED BLOOD COUNT 2.94 10^6/uL (4.00-5.40); WHITE BLOOD COUNT 6.9 10^3/uL (4.0-10.0)
[2022-05-04 06:00] VITALS: BP 153/76
[2022-05-04] MEDS: BISACODYL 10 MG SUPP XX SCH ×3 (06:00→12:00)
[2022-05-04] MEDS: HEPARIN SOD (PORCINE) 5000UNITS/ML 1ML VIAL/SYRINGE SQ SCH (06:04)
[2022-05-04 06:16] LABS: BLOOD UREA NITROGEN 5 MG/DL (7-18); CALCIUM LEVEL 8.4 MG/DL (8.5-10.1); CARBON DIOXIDE LEVEL 27 MEQ/L (21-32); CHLORIDE LEVEL 101 MEQ/L (98-107); CREATININE FOR GFR 0.43 MG/DL (0.55-1.30); GLOMERULAR FILTRATION RATE > 60.0 (>51); GLUCOSE, FASTING 107 MG/DL (70-100); MAGNESIUM LEVEL 2.2 MG/DL (1.8-2.4); PHOSPHORUS LEVEL 2.8 MG/DL (2.5-4.9); POTASSIUM SERUM 3.1 MEQ/L (3.5-5.1); SODIUM LEVEL 132 MEQ/L (136-145)
[2022-05-04] MEDS ORDERED: KCL 10MEQ/100ML SWI (KRUN) 10 MEQ in IV 1 EA IV SCH (08:00)
[2022-05-04 08:31] VITALS: BP 153/76
[2022-05-04] MEDS: atenoloL 25 MG TAB PO SCH (08:31)
[2022-05-04] MEDS ORDERED: POTASSIUM CHLORIDE 10MEQ SR TABLET PO ONE (08:40)
[2022-05-04] MEDS: DOCUSATE SODIUM 100MG CAPSULE PO SCH (08:52)
[2022-05-04] MEDS: LACTULOSE 20 GM/30 ML SYRUP UD PO SCH (08:52)
[2022-05-04] MEDS: MIRALAX *UNIT DOSE* 17GM PACKET PO SCH (08:53)
[2022-05-04] MEDS: LACRILUBE (AKWA TEARS) OPHTH OINT 3.5 GM OU SCH (08:53)
[2022-05-04] MEDS: LIDOCAINE 5% (LIDODERM) PATCH TD SCH (08:53)
[2022-05-04] MEDS ORDERED: IRON SUCROSE 300 MG in NS 250 ML IV SCH (09:00)
[2022-05-04] MEDS ORDERED: FERR325T3 PO (09:41)
[2022-05-04] MEDS ORDERED: COLA100C5 PO (09:41)
[2022-05-04] MEDS ORDERED: ATEN25TA PO (09:41)
[2022-05-04] MEDS ORDERED: MIRA3350 PO (09:43)
[2022-05-04] MEDS ORDERED: K-PHOS ORIGINAL (POT.ACID PHOSPHATE) 500MG TAB PO ONE (10:00)
== END 2022-05-04 15:50 | disposition home or self-care (01) | DRG 315 ==
LOC: M ED 16:22 → EDBD 16:22 → M ED INP 16:23 → INTOOBSV 21:02 → M ED INP 21:02 → UNDOADMIN 21:02 → M MS5PR 04-22 01:50 → OBSVTOIN 04-27 17:23
PROVIDERS: ADMIT Internal Medicine; ATTEND Internal Medicine
PROC: 0PSG04Z Reposition Left Humeral Shaft with Internal Fixation Device, Open Approach (ICD-10-PCS; principal; 2022-04-26 08:30)
PROC: 05HB33Z Insertion of Infusion Device into Right Basilic Vein, Percutaneous Approach (ICD-10-PCS; 2022-04-28)
DX: S42.352A Displaced comminuted fracture of shaft of humerus, left arm, initial encounter for closed fracture (principal); K56.609 Unspecified intestinal obstruction, unspecified as to partial versus complete obstruction; I10 Essential (primary) hypertension; E78.5 Hyperlipidemia, unspecified; F41.9 Anxiety disorder, unspecified; F32.A Depression, unspecified; Z85.038 Personal history of other malignant neoplasm of large intestine; Z87.891 Personal history of nicotine dependence; I89.0 Lymphedema, not elsewhere classified; N32.81 Overactive bladder; Z79.899 Other long term (current) drug therapy; W01.0XXA Fall on same level from slipping, tripping and stumbling without subsequent striking against object, initial encounter; Y92.480 Sidewalk as the place of occurrence of the external cause; Y93.89 Activity, other specified; Y99.8 Other external cause status; K59.00 Constipation, unspecified; D64.9 Anemia, unspecified; Z90.49 Acquired absence of other specified parts of digestive tract; Z93.3 Colostomy status